=== PATIENT | female | born 1990 | race Caucasian/White ===

== ENCOUNTER 2016-12-18 20:14 | Emergency (ER) | payer MEDICAID ==
[~2016-12-18] VITALS: Ht 152.4 cm; Wt 68.0 kg
[~2016-12-18 20:14] MED LIST: ANTIBIOTIC PO; BIRTH CONTROL PO; CLARITIN 10MG T10 MG PO; CLINDAMYCIN150 MG PO; CLONIDINE HCL0.1 M1 PO; CLONIDINE HYDR0.1 MG PO; CONCERTA36 MG PO; Docusate Sodiu100 MG PO; FLONASE 50 MCG16 GM; GOOD NEIGHBOR P20 M1 PO; HYDROCODONE1 TABLET PO; IBUPROFEN400 MG PO; MEDROL 4MG. DOSE4 MG PO; METHYLPHENIDATE20 MG PO; MIRALAX17 GM/PACK PO; PAXIL20 MG PO; PREDNISONE 20MG20 MG PO; RANITIDINE150 M1 PO; SERTRALINE 50MG50 MG PO; STRATTERA40 MG PO; TRI-SPRINTEC1 TAB PO; TRINESSA 281 TAB PO; VITAMIN C500 M1 PO; VOLTAREN75 MG PO; ZITHROMAX Z PA250 MG PO; ZITHROMAX Z-PA250 M1 PO
[2016-12-18] MEDS ORDERED: MONTELUKAST SOD10 MG PO (20:27)
--- NOTE | 2016-12-18 20:36 | Emergency Room Report ---
History of Present Illness Time Seen by 2004 Presenting Problem in Triage Pt arrived:Wheelchair Presenting Problem:C/O PAIN TO RIGHT SIDE OF BACK THAT RADIATES DOWN INTO RIGHT LOWER QUAD. C/O BURNING WITH URINATION AND DIARRHEA Onset of symptoms date/time:12/18/16/ or onset unknown for:MEDICAL HX UNKNOWN Treatment Prior to Arrival: [employer] Provided by: Sepsis Risk Assessment: Temp: 98.4 B/P: 126/41 MAP: 69 Pulse: 75 Resp: 18 Recent fever? N Clinical Suspician of Infection? N Mental Status: 1 - Regular (Normal Baseline) Sepsis Risk:Low Sepsis Risk Have you (or family members/close friends) recently traveled outside the [place]? N If Yes, where/when: Have you had exposure to infectious disease within the past month? N TB? Other? Specify: Source patient, RN notes reviewed, family, old records Exam Limitations no limitations Comment acute onset of rt flank pain this pm Cardiac Chest Pain Chest pain indicative of cardiac No Timing/Duration this evening Severity moderate ALLERGIES Coded Allergies: cefaclor (From [facility]) (04/13/15) sulfamethoxazole (From [facility]) (04/13/15) trimethoprim (From [facility]) (04/13/15) Home Medications Reported Medications Loratadine (Claritin 10MG) 10 MG PO DAILY Docusate Sodium (Docusate Sodium 100MG Capsule) 100 MG PO BID Omeprazole 20 MG PO DAILY Montelukast Sodium 10 MG PO DAILY #30 History Medical History General CAD? No Angina: No [place]: No Hypertension? No Hyperlipidemia? No CHF? No DVT? No PE? No COPD? No Asthma? No Anemia? No GERD? No Gastric ulcers? No GI Bleed? No Hernia? No Thyroid Problems? No Hypothyroidism? No CVA? No Seizures? No Diabetes? No Renal Insuffiency? No End Stage Renal Disease? No UTI? Yes Stones? No BPH? No GB Disease: No Nephritic Syndrome? No Asplenia? No Hepatitis? No Sickle Cell Disease? No Arthritis? No Migraines? No Cataracts? No Glaucoma? No MRSA? No HIV? No TB? No Anxiety? No Depression? No Cancer? No More? 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 Respiratory denies cough, denies shortness of breath, denies wheezing Cardiovascular denies chest pain, denies palpitations, denies syncope Gastrointestinal see HPI, abdominal pain, nausea, denies vomiting Genitourinary denies: dysuria, frequency, hesitancy, hematuria. Musculoskeletal denies back pain, denies joint pain, denies joint swelling, denies neck pain Skin denies rash Psychiatric/Neurological denies anxiety, denies seizure Physical Exam Vital Signs Vital Signs Date Time Temp Pulse Resp B/P Pulse O2 O2 Flow FiO2 Ox Delivery Rate 12/186 85 14 115/53 97 12/18 2040 20 12/19 2019 98.4 75 18 126/41 98 - WBC >12,000 or <4,000 or 10% bands? 2 or more SIRS Criteria Met? B/P:115/53 MAP:69 Creatinine >2.0? UA output<0.5ml/kg/hr for 2 hrs? Platelet count >100,000? Lactate >2.0mmol/1? INR >1.2 or PTT > than 60 sec? Evidence of Organ Dysfunction? Provider documented clinical suspician of infection? N Sepsis Criteria Count: 0 Sepsis Risk: Low Sepsis Risk General Appearance no apparent distress Eye Exam - bilateral eye PERRL, bilateral eye EOMI Ear, Nose, Throat normal ENT inspection Neck supple Respiratory Status No: respiratory distress. Cardiovascular regular rate/rhythm Peripheral Pulses Pulses normal Yes Gastrointestinal soft, no organomegaly, no pulsatile mass, no guarding, no rebound Back no CVA tenderness Extremities normal inspection Strength 4 Upper Ext (L), 4 Upper Ext (R), 4 Lower Ext (L), 4 Lower Ext (R) Neurologic alert, furniture crater II-XII nml as tested, no motor/sensory deficits Reflexes Reflexes normal No Mental status normal mood/affect Skin no rash cons.w/shingles Medical Decision Making LABS/Meds/Orders Pt receiving controlled substance in ED? No Results/Orders Laboratory Tests 12/18/162020: Amylase 69, Lipase 148 12/18/162020: Sodium 142, Potassium 3.4 L, Chloride 105, Carbon Dioxide 28, BUN 9, Creatinine 0.6, Estimated Creat Clear 155, Estimated GFR (MDRD) 123, Glucose 89, Calcium 9.4, Total Bilirubin 0.2, AST 27, ALT 38, Alkaline Phosphatase 130 H, Total Protein 8.2, Albumin 3.9, Globulin 4.3 H, Albumin/Globulin Ratio 0.9 L, WBC 8.4, RBC 5.49 H, Hgb 14.4, Hct 46.3, MCV 84.3, RDW 16.3, Plt Count 218, MPV 9.4 , Gran % 51.6, Gran # 4.3, Lymphocytes % 44.1, Monocytes % 3.1, Eosinophils % 0.9, Basophils % 0.3, Lymphocytes # 3.7, Monocytes # 0.3, Eosinophils # 0.1, Basophils # 0.0, PUBS MCHC 31.2 L, MCH 26.3 L, Urine Color YELLOW, Urine Appearance CLOUDY, Urine pH 7.5, Ur Specific Friend 1.020, Urine Protein NEGATIVE, Urine Ketones NEGATIVE, Urine Blood NEGATIVE, Urine Nitrate NEGATIVE, Urine Bilirubin NEGATIVE, Urine Urobilinogen 1.0, Ur Leukocyte Esterase NEGATIVE , Urine RBC NONE, Urine WBC NONE, Ur Squamous Epith Cells OCC, Amorphous Sediment 4+, Urine Bacteria 2+, Urine Glucose NEGATIVE Current Medication Orders Sig/Shay Start time Last Medication Dose Route Stop Time Status Admin Sodium Chloride 1,000 ML .STK-MED ONE 12/19 2031 DC IV Ketorolac 0 .STK-MED ONE 12/18 2030 DC Tromethamine .ROUTE Ondansetron HCl 0 .STK-MED ONE 12/18 2030 DC .ROUTE Ketorolac 30 MG ONCE ONE 12/18 2029 DC 12/18 Tromethamine IV 12/18 Ondansetron HCl 4 MG ONCE ONE 12/18 2029 DC 12/18 IV 12/18 Sodium Chloride 10 ML PRN PRN 12/18 2029 AC IV 12/19 2018 Sodium Chloride 1,000 ML .Q1H1M 12/18 2029 DC 12/18 IV 12/18 Sodium Chloride 10 ML PRN PRN 12/18 2029 AC IV 12/19 2028 Orders Procedure Date/time Status DIET-NOTHING BY MOUTH 12/[address] SCAN REQ 12/19 2143 Complete LIPASE 12/18 2030 Complete AMYLASE 12/18 2030 Complete CULTURE, URINE 12/18 2020 Active IV SALINE LOCK 12/18 2018 Active URINALYSIS/COMPLETE 12/18 2018 Complete URINE 12/18 2018 Complete CBC WITH AUTO DIFF 12/18 2018 Complete CHEM 12 PROFILE 12/18 2018 Complete XRAY/CT/US XRAY/CT/US CT abdomen, pelvis CT interpretation by reviewed by me Time results known: 2317 CT Results normal/NAD Departure Departure Time of Disposition 2314 Disposition DC Home or Self Care(routine) Clinical Impression Primary Impression: Flank pain, acute Condition STABLE Patient Instructions DI for Flank Pain Additional Instructions see pcp for follow up Discharge Counseling Counseled pt/family regarding diagnosis, test results, medications/RX, follow up needs ED Critical Care Critical Care No at 2319
[2016-12-18 21:04] LABS: LYMPH # 3.7 K/mm3 (0.7-4.5); LYMPH % 44.1 % (10-50.0); URINE BILIRUBIN - DIPSTICK NEGATIVE (NEG); URINE BLOOD NEGATIVE (NEG)
[2016-12-18 21:16] LABS: HEMOGLOBIN 14.4 g/dL (12.2-16.2)
[2016-12-18 21:18] LABS: URINE SQUAMOUS CELLS OCC #/hpf (0-5)
--- OUTSIDE RECORDS SUMMARY | 2016-12-18 21:18 | External Medical Summary Rpt | CCD ---
Author Author , NIGEL Organization NIGEL Address Unknown Phone [email or web address] Immunization Name Date Rout CVX Reac Dose Comm Prov Is Faci e tion ent ider Refu lity Give sed n Td 10-3 9 999 Hist H196 No H196 (narcisa 0-20 oric lt), 03 al Info adso rmat rbed ion - Sour ce Unsp ecif ied MMR 06-0 3 999 Hist H196 No H196 9-19 oric 98 al Info rmat ion - Sour ce Unsp ecif ied Héctor 06-0 2 999 Hist H196 No H196 o-OP 9-19 oric V 98 al Info rmat ion - Sour ce Unsp ecif ied DTaP 06-0 107 999 Hist H196 No H196 , UF 9- oric 98 al Info rmat ion - Sour ce Unsp ecif ied
--- OUTSIDE RECORDS SUMMARY | 2016-12-18 21:18 | External Medical Summary Rpt | CCD ---
Author Author , NIGEL Organization NIGEL Address Unknown Phone [email or web address] Immunization Name Date Rout CVX Reac Dose [...]
--- OUTSIDE RECORDS SUMMARY | 2016-12-18 21:18 | External Medical Summary Rpt ---
Author Author NIGEL Peralta, [employer] Organization [employer] Address Unknown Phone Unavailable
--- NOTE | 2016-12-18 22:43 | RADIOLOGY REPORT PS360 ---
CT ABD PELVIS W/O CONTRAST HISTORY: FLANK PAIN Patient Age: 26 years: Female Ordering Physician: Jack Galindo MD TECHNIQUE: Helical CT scanning performed through the abdomen pelvis with no oral nor IV contrast utilized. Sagittal coronal reconstruction CT workstation. COMPARISON :CT abdomen pelvis March 2310/18 and 08/09/2015. FINDINGS Lung bases no active disease.. 2 Small calcified granuloma right lower lobe, & above right hemidiaphragm Abdomen/pelvis. Lack of oral and IV contrast decreases sensitivity . Liver, spleen, pancreas, adrenals unremarkable on this noncontrast study. The gallbladder is small contracted on this study. Kidneys. No discrete calculi in either ureter or kidney kidney Right kidney. No hydronephrosis. No mass. I would only note that the the right ureter is slightly more generous in caliber as it approaches the right iliac vessels on today's study versus previous studies noted above. This is nonspecific reflect hydration state posteriorly tract obstruction The bladder is unremarkable. No calculi are seen here. Uterus is normal in size. No significant adnexal findings. Normal size ovaries bilaterally with likely small follicular cyst. No free fluid in cul-de-sac. GI tract. Low-lying cecum just adjacent to the normal size right ovary. The appendix is visualized with no evidence of appendicitis. [id number] stool throughout colon with moderate stool most evident at the cecum. It terminal ileum appears normal. There are scattered nodes throughout the mesentery most evident towards right lower quadrant.. Unimpressive but Could reflect mild mesenteric adenitis. With these mesenteric nodes are slightly more evident today than on previous studies. Some of the larger nodes measures 12.5 mm length x 6 mm.. No bowel wall thickening or inflammatory changes. Small bowel Upper normal fluid in small bowel. There is a scattered air-fluid levels within nondilated small bowel. Conceivably could reflect a mild ileus or early enteritis but unimpressive.. No liquid within colon Stomach: 14 mm x 5 mm Elongated radiopaque area in stomach reflecting ingested material or elongated tablet Osseous structures unremarkable. IMPRESSION 1. No discrete acute findings abdomen pelvis. Appendix WNL. No evidence of appendicitis . Low-lying cecum with moderate stool.. No adnexal masses. 2. No urinary tract calculi nor hydronephrosis. Only note Right ureter very slightly more generous today just above where it crosses the right iliac vessels- this most likely likely merely reflects extrinsic compression from these vessels and likely more generous Generous hydration state.. Conceivably could reflect UTI 3. Would note Scattered mesenteric nodes which most evident towards RLQ.-May Reflect mild Mesenteric Adenitis As Well.. These mesenteric Nodes slightly more evident & generous today than previous CT studies.
[2016-12-18 23:31] VITALS: BP 115/53
== END 2016-12-18 23:33 | disposition home or self-care (01) ==
LOC: ER 20:14
PROVIDERS: Emergency Medicine
DX: R10.9 Unspecified abdominal pain (principal); Z79.899 Other long term (current) drug therapy
CPT/HCPCS: J2405